=== PATIENT | male | born 1950 | race Caucasian/White ===

== ENCOUNTER 2016-12-16 06:28 | Day surgery (SDC) | payer BC, MEDICARE ==
[2016-12-16] MEDS ORDERED: Propofol 200 MG/20 ML SDV ONE ×2 (07:25→08:08)
[2016-12-16] MEDS ORDERED: fentaNYL 100 MCG/2 ML SDV ONE (07:25)
[2016-12-16] MEDS ORDERED: Sodium Chloride 0.9% 1,000 ML IV SCH (07:30)
[2016-12-16] MEDS ORDERED: Ondansetron 4 MG/2 ML SDV ONE (08:02)
[2016-12-16 09:38] VITALS: BP 136/84
--- NOTE | 2016-12-16 13:46 | OR ---
DATE OF PROCEDURE: 12/16/2016 PROCEDURE: Colonoscopy. FINDINGS: Normal colonoscopy. COMPLICATIONS: None. LINE PERSON: None. PREOPERATIVE DIAGNOSIS: Positive FIT test. POSTOPERATIVE DIAGNOSIS: Positive FIT test. COMPLICATIONS: None. ANESTHESIA: MAC risk. RISKS: Risks, benefits, alternatives, and limitations, including, but not limited to infection, bleeding, perforation, false positives and false negatives were explained to the patient, and he wished to proceed. PROCEDURE IN DETAIL: The patient was placed in left lateral decubitus position. Digital rectal exam was performed without abnormality. The scope was introduced and advanced atraumatically to the ileocecal valve. The scope was brought back to the ascending, transverse, descending colon, and retroflexed. No old or new blood. No diverticulosis. No masses. No polyps. No other abnormalities. The patient tolerated the procedure well. Johan Oshea MD /[id number]
== END 2016-12-16 09:35 | disposition home or self-care (01) ==
LOC: JP.SDS 06:28
PROVIDERS: ATTEND Surgery
DX: R19.5 Other fecal abnormalities (principal); I10 Essential (primary) hypertension; K21.9 Gastro-esophageal reflux disease without esophagitis; E66.9 Obesity, unspecified; Z68.30 Body mass index [BMI] 30.0-30.9, adult; Z98.890 Other specified postprocedural states
CPT/HCPCS: 45378; J2405; J2704; J3010; J7040

== ENCOUNTER 2020-04-19 15:02 | Emergency (ER) | payer OTHER ==
[2020-04-19 15:42] VITALS: BP 176/95; PULSE 61
--- NOTE | 2020-04-19 16:03 | EDM.PDOC ---
ED HPI GENERAL MEDICAL PROBLEM - General Chief Complaint: General Stated Complaint: LEFT ARMPIT PAIN WITH RASH Time Seen by Provider: 04/19/20 15:43 Source of Information: Reports: Patient History Limitations: Reports: No Limitations - History of Present Illness INITIAL COMMENTS - FREE TEXT/NARRATIVE: 70-year-old male with autoimmune disorder presents to emergency department today for evaluation of pain left armpit. Patient noted a sharp nerve-like pain in his left armpit that was unrelenting yesterday. He describes the pain as a "zinger". It did improve with ibuprofen. He also took 1 Percocet last night which helped as well. Today in the same area of his armpit he noticed onset of a blistering rash. He reports similar nerve pain without rash in the left groin a few days ago. He also recently reports outbreak of fever blister. He denies any fevers or other associated symptoms. Left Arm Pain Score (Numeric/FACES): 9 - Related Data Allergies Allergy/AdvReac Type Severity Reaction Status Date / Time No Known Allergies Allergy Verified 04/19/20 15:22 Home Meds: Home Meds Losartan [Cozaar] 100 mg PO DAILY 06/11/13 [History] Metoprolol Succinate [Toprol XL] 20 mg PO DAILY 06/11/13 [History] amLODIPine [Norvasc] 10 mg PO DAILY 06/11/13 [History] Fexofenadine [Brielle] 180 mg PO DAILY 12/14/16 [History] aMILoride HCl [Amiloride HCl] 10 mg PO DAILY 12/14/16 [History] Acyclovir 800 mg PO 5XDAY 7 Days #35 tablet 04/19/20 [Rx] Famotidine 20 mg PO DAILY 04/19/20 [History] Past Medical History Cardiovascular History: Reports: Hypertension Gastrointestinal History: Reports: Colon Polyp, GERD Genitourinary History: Reports: Other (See Below) Other Genitourinary History: Undescended testicle Musculoskeletal History: Reports: None Other Neuro History: [facility] [place] Endocrine/Metabolic History: Reports: Obesity/BMI 30+ Hematologic History: Reports: Blood Transfusion(s) Immunologic History: Reports: Immunosuppression, Other (See Below) - Infectious Disease History Infectious Disease History: Reports: Chicken Pox, Measles, Mumps - Past Surgical History Head Surgeries/Procedures: Reports: None Cardiovascular Surgical History: Reports: None GI Surgical History: Reports: None Male Surgical History: Reports: Other (See Below) Other Male Surgeries/Procedures: Orchiectomy Endocrine Surgical History: Reports: None Neurological Surgical History: Reports: None Musculoskeletal Surgical History: Reports: Arthroscopic Knee, Knee Replacement, Shoulder Surgery Other Musculoskeletal Surgeries/Procedures:: left Dermatological Surgical History: Reports: None Social & Family History - Family History Family Medical History: Noncontributory - Tobacco Use Smoking Status *Q: Former Smoker Used Tobacco, but Quit: Yes Month/Year Tobacco Last Used: 1987 Second Hand Smoke Exposure: No - Caffeine Use Caffeine Use: Reports: None - Recreational Drug Use Recreational Drug Use: No ED ROS GENERAL - Review of Systems Review Of Systems: Comprehensive ROS is negative, except as noted in HPI. ED EXAM, GENERAL - Physical Exam Exam: See Below Exam Limited By: No Limitations General Appearance: Alert, No Apparent Distress Head: Atraumatic, Normocephalic Neck: Normal Inspection, Supple, Non-Tender, Full Range of Motion Respiratory/Chest: No Respiratory Distress Cardiovascular: Normal Peripheral Pulses GI/Abdominal: Soft, Non-Tender Back Exam: Normal Inspection Extremities: Normal Inspection Skin Exam: Warm, Dry, Intact, Rash, Other (Fine blistering rash on an erythemato us base and small patches located in the left axilla.) Course - Vital Signs Last Recorded V/S: Last Vital Signs Temp 97.2 F 04/19/20 15:29 Pulse 61 04/19/20 15:29 Resp 16 04/19/20 15:29 BP 176/95 H 04/19/20 15:29 Pulse Ox 93 L 04/19/20 15:29 Departure - Departure Time of Disposition: 16:00 Disposition: Home, Self-Care 01 Condition: Good Clinical Impression: Zoster - Discharge Information Prescriptions: Acyclovir 800 mg PO 5XDAY 7 Days #35 tablet Instructions: Shingles Referrals: PCP,None [Primary Care Provider] - Forms: ED Department Discharge Additional Instructions: 1. Ibuprofen 400 mg every 6-8 hours for pain. 2. Percocet 1 tablet every 4-6 hours for severe pain, avoid if possible secondary to severe side effects. 3. Follow-up with primary care doctor as needed if symptoms are not improving in 2 weeks. 4. Return to the emergency setting with any rapidly worsening symptoms or concerns. Sepsis Event Note (ED) - Evaluation Sepsis Screening Result: No Definite Risk - Focused Exam Vital Signs: Vital Signs Temp Pulse Resp BP Pulse Ox 04/19/20 15:29 97.2 F 61 16 176/95 H 93 L 04/19/20 15:17 97.2 F 61 16 176/95 H 93 L - Assessment/Plan Assessment:: 70-year-old male with autoimmune disorder now presenting with a blistering rash in the left armpit that is consistent with varicella-zoster. No apparent complication. Outbreak likely within past 48 to 72 hours. Discussed use of acyclovir and I believe he would benefit at this time. Discussed use of pain management with ibuprofen and Percocet. Patient indicates that he has his own supply of these medications at home and does not need additional medications at this time. No signs of secondary bacterial infection. No evidence that infection is present in the facial dermatomes as there is no pain or concern in this area. Recommend follow-up with primary care doctor. Discussed risk chronic neuropathic pain. Medically stable. Discharge home. Plan: 1. Acyclovir 800 mg by mouth 5 times daily for the next 7 days. 2. Ibuprofen 400 mg every 6-8 hours for pain. 3. Percocet 1 tablet every 4-6 hours for severe pain, avoid if possible. 4. Follow-up with primary care doctor as needed.
== END 2020-04-19 16:19 | disposition home or self-care (01) ==
LOC: JP.ED 15:02
DX: B02.9 Zoster without complications (principal); I10 Essential (primary) hypertension; K21.9 Gastro-esophageal reflux disease without esophagitis; E66.9 Obesity, unspecified; Z87.891 Personal history of nicotine dependence; Z68.36 Body mass index [BMI] 36.0-36.9, adult; Z79.899 Other long term (current) drug therapy
CPT/HCPCS: 99282

== ENCOUNTER 2022-03-30 16:39 | Emergency (ER) | payer OTHER ==
[2022-03-30 16:55] VITALS: BP 154/74; PULSE 60
== END 2022-03-30 18:10 | disposition home or self-care (01) ==
LOC: JP.ED 16:39
DX: H10.31 Unspecified acute conjunctivitis, right eye (principal); L03.213 Periorbital cellulitis; I10 Essential (primary) hypertension; E66.9 Obesity, unspecified; Z68.37 Body mass index [BMI] 37.0-37.9, adult; Z79.899 Other long term (current) drug therapy; Z87.891 Personal history of nicotine dependence
CPT/HCPCS: 99282

== ENCOUNTER 2023-01-21 09:25 | Emergency (ER) | payer OTHER ==
[2023-01-21] MEDS ORDERED: Sodium Chloride 0.9% 10 ML Syringe FLUSH PRN (09:36)
[2023-01-21 09:43] LABS: BASOPHILS ABSOLUTE AUTO 0.07 K/uL (0.00-0.10); BASOPHILS PERCENT AUTO 0.8 % (0.1-1.3); EOSINOPHILS ABSOLUTE AUTO 0.23 K/uL (0.00-0.40); EOSINOPHILS PERCENT AUTO 2.5 % (0.0-5.4); HEMATOCRIT 44.9 % (38.4-49.7); HEMOGLOBIN 15.7 g/dL (12.9-16.9); IMMATURE GRAN ABSOLUTE AUTO 0.04 K/uL (0.00-0.23); IMMATURE GRAN PERCENT AUTO 0.4 % (0.0-0.7); LYMPHOCYTES ABSOLUTE AUTO 1.97 K/uL (0.8-3.3); LYMPHOCYTES PERCENT AUTO 21.2 % (11.4-47.7); MEAN CORPUSCULAR HEMOGLOBIN 31.5 pg (31.6-35.5); MONOCYTES ABSOLUTE AUTO 0.81 K/uL (0.20-0.90); MONOCYTES PERCENT AUTO 8.7 % (3.3-12.6); NEUTROPHILS ABSOLUTE AUTO 6.17 K/uL (1.0-7.6); NEUTROPHILS PERCENT AUTO 66.4 % (40.0-78.1); PLATELET COUNT,PLT 206 K/uL (130-375); RED BLOOD CELL COUNT 4.99 M/uL (4.14-5.76); WHITE BLOOD CELL COUNT,WBC 9.3 K/uL (3.2-11.0)
[2023-01-21] MEDS ORDERED: Sodium Chloride 0.9% 10 ML Syringe FLUSH ONE (09:48)
[2023-01-21] MEDS ORDERED: Sodium Chloride 0.9% 75 ML IV SCH (10:00)
[2023-01-21] MEDS ORDERED: Iopamidol 755 Mg/ML 100 ML Bottle IV SCH (10:00)
[2023-01-21 10:03] LABS: PTT,PARTIAL THROMBOPLSTIN TIME 28.5 sec (21.8-27.3)
[2023-01-21 10:06] LABS: CALCIUM 8.6 mg/dL (8.5-10.1); CREATININE 0.9 mg/dL (0.8-1.3); EST CRCL DRUG DOSING (CG) 80.18 mL/min; POTASSIUM,K 4.5 mmol/L (3.6-5.2); TROPONIN I HIGH SENSITIVITY 8.5 pg/mL (<=60.3)
[2023-01-21 10:08] LABS: ANION GAP 13.5 mmol/L (5.0-14.0)
[2023-01-21] MEDS ORDERED: hydrALAZINE 10 MG Tab PO STA (10:19)
[2023-01-21] MEDS ORDERED: Tenecteplase 50 MG Kit IVPUSH ONE (10:19)
[2023-01-21] MEDS ORDERED: niCARdipine HCl 25 MG in Sodium Chloride 0.9% 240 ML IV SCH (11:00)
[2023-01-21 11:17] VITALS: BP 185/89; PULSE 56
== END 2023-01-21 11:29 | disposition home or self-care (01) ==
LOC: JP.ED 09:25
DX: I63.332 Cerebral infarction due to thrombosis of left posterior cerebral artery (principal); I10 Essential (primary) hypertension; E66.9 Obesity, unspecified; Z20.822 Contact with and (suspected) exposure to COVID-19; Z88.7 Allergy status to serum and vaccine; Z88.8 Allergy status to other drugs, medicaments and biological substances; Z68.34 Body mass index [BMI] 34.0-34.9, adult
CPT/HCPCS: 36415; 37195; 70450; 70496; 70498; 80048; 82947; 84484; 85025; 85610; 85730; 87635; 93005; 96365; 99291; A9270; J3101; J3490; J7050; Q9967; U0002

== ENCOUNTER 2023-05-31 02:10 | Emergency (ER) | payer OTHER ==
[2023-05-31] MEDS ORDERED: Sodium Chloride 0.9% 10 ML Syringe FLUSH PRN (02:46)
[2023-05-31 02:56] LABS: BASOPHILS ABSOLUTE AUTO 0.05 K/uL (0.00-0.10); BASOPHILS PERCENT AUTO 0.6 % (0.1-1.3); EOSINOPHILS PERCENT AUTO 2.4 % (0.0-5.4); HEMATOCRIT 43.4 % (38.4-49.7); IMMATURE GRAN ABSOLUTE AUTO 0.03 K/uL (0.00-0.23); IMMATURE GRAN PERCENT AUTO 0.4 % (0.0-0.7); LYMPHOCYTES ABSOLUTE AUTO 2.35 K/uL (0.8-3.3); LYMPHOCYTES PERCENT AUTO 28.3 % (11.4-47.7); MEAN CORPUSCULAR HEMOGLOBIN 31.8 pg (31.6-35.5); MEAN CORPUSCULAR HGB CONC 34.6 g/dL (31.6-35.5); MEAN CORPUSCULAR VOLUME 91.9 fL (81.4-99.0); MONOCYTES PERCENT AUTO 10.9 % (3.3-12.6); NEUTROPHILS ABSOLUTE AUTO 4.76 K/uL (1.0-7.6); NEUTROPHILS PERCENT AUTO 57.4 % (40.0-78.1); PLATELET COUNT,PLT 208 K/uL (130-375); RED BLOOD CELL COUNT 4.72 M/uL (4.14-5.76); WHITE BLOOD CELL COUNT,WBC 8.3 K/uL (3.2-11.0)
[2023-05-31] MEDS ORDERED: Methocarbamol 500 MG Tab PO ONE (03:00)
[2023-05-31] MEDS ORDERED: Dexamethasone 4 MG/ML SDV IVPUSH ONE (03:00)
[2023-05-31] MEDS ORDERED: Prochlorperazine 10 MG/2 ML SDV IVPUSH ONE (03:00)
[2023-05-31 03:16] LABS: PROTHROMBIN TIME 9.9 sec (9.2-10.6); PTT,PARTIAL THROMBOPLSTIN TIME 24.9 sec (21.8-27.3)
[2023-05-31 03:17] LABS: A/G RATIO 1.3 (1.2-2.2); ALANINE AMINOTRANSFERASE,ALT 64 U/L (12-78); ALBUMIN 3.6 g/dL (3.4-5.0); ALKALINE PHOSPHATASE 105 U/L (46-116); ANION GAP 10.8 mmol/L (5.0-14.0); ASPARTATE AMNIOTRANSFERASE,AST 37 U/L (15-37); BILIRUBIN TOTAL 0.8 mg/dL (0.2-1.0); BLOOD UREA NITROGEN,BUN 28 mg/dL (7-18); CALCIUM 8.7 mg/dL (8.5-10.1); CARBON DIOXIDE,CO2 25 mmol/L (21-32); CHLORIDE,CL 104 mmol/L (100-108); CREATININE 0.9 mg/dL (0.8-1.3); EST CRCL DRUG DOSING (CG) 79.02 mL/min; ESTIMATED GFR 91 mL/min (>60); GLUCOSE RANDOM 113 mg/dL (74-106); PROTEIN TOTAL,TP 6.3 g/dL (6.4-8.2); SODIUM,NA 140 mmol/L (140-148)
[2023-05-31] MEDS ORDERED: Sodium Chloride 0.9% 1,000 ML IV SCH (03:30)
[2023-05-31 04:14] VITALS: BP 171/85; PULSE 57
== END 2023-05-31 04:17 | disposition home or self-care (01) ==
LOC: JP.ED 02:10
DX: E86.0 Dehydration (principal); R51.9 Headache, unspecified; I10 Essential (primary) hypertension; E66.9 Obesity, unspecified; Z68.35 Body mass index [BMI] 35.0-35.9, adult; Z87.891 Personal history of nicotine dependence; Z86.73 Personal history of transient ischemic attack (TIA), and cerebral infarction without residual deficits; Z88.8 Allergy status to other drugs, medicaments and biological substances; Z88.7 Allergy status to serum and vaccine; Z79.01 Long term (current) use of anticoagulants; Z79.82 Long term (current) use of aspirin; Z79.899 Other long term (current) drug therapy
CPT/HCPCS: 36415; 70450; 80053; 85025; 85610; 85730; 96361; 96374; 96375; 99284; A9270; J0780; J1100; J3490; J7030

== ENCOUNTER 2023-11-21 11:52 | Emergency (ER) | payer OTHER ==
[2023-11-21 14:00] VITALS: BP 153/92; PULSE 87
== END 2023-11-21 14:16 | disposition home or self-care (01) ==
LOC: JP.ED 11:52
DX: R55 Syncope and collapse (principal); I10 Essential (primary) hypertension; E78.00 Pure hypercholesterolemia, unspecified; K21.9 Gastro-esophageal reflux disease without esophagitis; E66.9 Obesity, unspecified; Z86.73 Personal history of transient ischemic attack (TIA), and cerebral infarction without residual deficits; Z79.01 Long term (current) use of anticoagulants; Z79.82 Long term (current) use of aspirin; Z79.899 Other long term (current) drug therapy; Z88.7 Allergy status to serum and vaccine; Z88.8 Allergy status to other drugs, medicaments and biological substances; Z88.3 Allergy status to other anti-infective agents; Z88.4 Allergy status to anesthetic agent; Z68.36 Body mass index [BMI] 36.0-36.9, adult
CPT/HCPCS: 99284

== ENCOUNTER 2024-02-21 13:35 | Emergency (ER) | payer OTHER ==
[2024-02-21] MEDS ORDERED: Sodium Chloride 0.9% 10 ML Syringe FLUSH PRN (13:48)
[2024-02-21 13:55] LABS: BASOPHILS ABSOLUTE AUTO 0.07 K/uL (0.00-0.10); BASOPHILS PERCENT AUTO 0.7 % (0.1-1.3); EOSINOPHILS ABSOLUTE AUTO 0.13 K/uL (0.00-0.40); EOSINOPHILS PERCENT AUTO 1.3 % (0.0-5.4); HEMATOCRIT 43.5 % (38.4-49.7); HEMOGLOBIN 15.1 g/dL (12.9-16.9); IMMATURE GRAN ABSOLUTE AUTO 0.05 K/uL (0.00-0.23); IMMATURE GRAN PERCENT AUTO 0.5 % (0.0-0.7); LYMPHOCYTES ABSOLUTE AUTO 2.71 K/uL (0.8-3.3); LYMPHOCYTES PERCENT AUTO 26.9 % (11.4-47.7); MEAN CORPUSCULAR HEMOGLOBIN 29.8 pg (31.6-35.5); MEAN CORPUSCULAR HGB CONC 34.7 g/dL (31.6-35.5); MONOCYTES ABSOLUTE AUTO 0.94 K/uL (0.20-0.90); MONOCYTES PERCENT AUTO 9.3 % (3.3-12.6); NEUTROPHILS ABSOLUTE AUTO 6.17 K/uL (1.0-7.6); NEUTROPHILS PERCENT AUTO 61.3 % (40.0-78.1); PLATELET COUNT,PLT 215 K/uL (130-375); RED BLOOD CELL COUNT 5.06 M/uL (4.14-5.76); WHITE BLOOD CELL COUNT,WBC 10.1 K/uL (3.2-11.0)
[2024-02-21] MEDS ORDERED: Proparacaine 0.5% Ophth Soln 15 ML Bottle EYEBOTH ONE (14:07)
[2024-02-21 14:13] LABS: INR 1.1
[2024-02-21 14:17] LABS: ANION GAP 7.1 mmol/L (5.0-14.0); CALCIUM 8.9 mg/dL (8.5-10.1); CREATININE 0.9 mg/dL (0.8-1.3); EST CRCL DRUG DOSING (CG) 80.23 mL/min; POTASSIUM,K 3.9 mmol/L (3.6-5.2); TROPONIN I HIGH SENSITIVITY 7.2 pg/mL (<=60.3)
[2024-02-21 15:30] VITALS: BP 169/100; PULSE 58
== END 2024-02-21 16:02 | disposition home or self-care (01) ==
LOC: JP.ED 13:35
DX: I48.20 Chronic atrial fibrillation, unspecified (principal); H53.9 Unspecified visual disturbance; I10 Essential (primary) hypertension; E78.00 Pure hypercholesterolemia, unspecified; E66.9 Obesity, unspecified; Z79.52 Long term (current) use of systemic steroids; Z79.01 Long term (current) use of anticoagulants; Z79.899 Other long term (current) drug therapy; Z88.7 Allergy status to serum and vaccine; Z88.8 Allergy status to other drugs, medicaments and biological substances; Z68.36 Body mass index [BMI] 36.0-36.9, adult
CPT/HCPCS: 36415; 70450; 70450-26; 80048; 82947; 84484; 85025; 85610; 85730; 93005; 99284; A9270-GY

== ENCOUNTER 2025-07-04 08:27 | Day surgery (SDC) | payer OTHER ==
[~2025-07-04 08:27] MED LIST: Propofol 200 MG/20 ML SDV ONE; fentaNYL 100 MCG/2 ML SDV ONE
[2025-07-04] MEDS: Lactated Ringers 1,000 ML IV SCH (09:19)
[2025-07-04 11:54] VITALS: BP 138/77; PULSE 52
== END 2025-07-04 11:55 | disposition home or self-care (01) ==
LOC: JP.SDS 08:27
PROVIDERS: ATTEND Surgery
DX: Z12.11 Encounter for screening for malignant neoplasm of colon (principal); D12.2 Benign neoplasm of ascending colon; D12.3 Benign neoplasm of transverse colon; E78.00 Pure hypercholesterolemia, unspecified; I10 Essential (primary) hypertension; E66.9 Obesity, unspecified; K21.9 Gastro-esophageal reflux disease without esophagitis; Z88.6 Allergy status to analgesic agent; Z88.7 Allergy status to serum and vaccine; Z88.8 Allergy status to other drugs, medicaments and biological substances; Z79.899 Other long term (current) drug therapy
CPT/HCPCS: 00811; 45380; 45385; 88305; J2704; J3010; J7120